=== PATIENT | female | born 1990 ===

== ENCOUNTER 2021-12-07 15:20 | Emergency (ER) | payer OTHER ==
[~2021-12-07] VITALS: Ht 157.5 cm; Wt 47.6 kg
[2021-12-07] MEDS ORDERED: ALBU108A5 IN (16:40)
[2021-12-07] MEDS ORDERED: BENZ100C19 PO (16:40)
[2021-12-07 17:03] VITALS: BP 105/58
== END 2021-12-07 17:08 | disposition home or self-care (01) ==
LOC: ER 15:34
DX: R05.9 Cough, unspecified (principal); R09.81 Nasal congestion; Z90.49 Acquired absence of other specified parts of digestive tract
CPT/HCPCS: 71046